=== PATIENT | male | born 1975 | race Hispanic/Latino ===

== ENCOUNTER 2021-06-17 21:20 | Emergency (ER) | payer BC ==
[~2021-06-17] VITALS: Ht 162.6 cm; Wt 83.9 kg
[2021-06-18] MEDS ORDERED: DOXYCYCLINE HY100 MG PO (00:29)
== END 2021-06-18 00:41 | disposition home or self-care (01) ==
LOC: ED 21:20
DX: L03.311 Cellulitis of abdominal wall (principal)
CPT/HCPCS: 36415; 74177; 80053; 85025; 99284-25; A9270; Q9967